=== PATIENT | female | born 1945 | race Caucasian/White ===

== ENCOUNTER 2020-01-16 07:52 | Outpatient (CLI) | payer MEDICARE, OTHER, SELFPAY ==
[2020-01-16 08:46] LABS: Estimated Glomerular Filt Rate > 60
== END 2020-01-16 07:53 | disposition home or self-care (01) ==
PROVIDERS: PCP Family Medicine; Visit Provider Nurse Practitioner Adult Health
DX: N13.30 Unspecified hydronephrosis (principal)
CPT/HCPCS: 36415; 82565

== ENCOUNTER 2020-01-20 08:36 | Outpatient (CLI) | payer MEDICARE, OTHER, SELFPAY ==
--- NOTE | ~2020-01-20 | NM_ITS ---
EXAMINATION: MALACHI carlton renal scan DATE: 01/20/2020 11:10 INDICATION: Hydronephrosis. TECHNIQUE: 8 mCi Tc-99m MAG3 was administered IV. 40 mg furosemide was administered IV immediately a fterward. The patient was scanned in the supine position. A posterior abdominal radionuclide angiogra m was obtained. A subsequent time course of static images of the kidneys, ureters, and bladder was ob tained. COMPARISON: CT abdomen and pelvis 05/04/2017 FINDINGS: The posterior abdominal radionuclide angiogram and sequential static images show normal siz e, position, and morphology of the kidneys. Peak renal parenchymal uptake was 2 min in right kidney a nd 2 min in left kidney (normal peak 3-5 minutes). The relative early renal uptake was 51% on the ri ght and 49% on the left (<40% is abnormal). No abnormalities of the ureters or bladder are seen. T1/2 for clearance of activity from the right kidney and proximal collecting system was 17 minutes. T1/2 for clearance of activity from the left kidney and proximal collecting system was 12 minutes. IMPRESSION: 1. Symmetric kidney function. 2. Delayed contrast clearance from right kidney and proximal collecting system, consistent with part ial obstruction that is likely clinically significant. 3. Delayed contrast clearance from left kidney and proximal collecting system, consistent with low g rade obstruction of questionable clinical significance. 4. Correlate with outside imaging for the side(s) of hydronephrosis. Note that false positives may b e seen with supine positioning, dehydration, and poor renal function. Reviewed, dictated and finalized at location A. IMPRESSION: 1. Symmetric kidney function. 2. Delayed contrast clearance from right kidney and proximal collecting system , consistent with partial obstruction that is likely clinically significant. 3. Delayed contrast clearance from left kidney and proximal collecting system, consistent with low grade obstruction of questionable clinical significance. 4. Correlate with outside imaging for the side(s) of hydronephrosis. Note that false positives may be seen with supine positioning, dehydration, and poor isidro al function.
== END 2020-01-20 08:37 | disposition home or self-care (01) ==
LOC: ANHIMG 08:38
PROVIDERS: PCP Family Medicine; Visit Provider Nurse Practitioner Adult Health
DX: N13.30 Unspecified hydronephrosis (principal)
CPT/HCPCS: 78708; A9562; J1940

== ENCOUNTER 2020-02-16 07:57 | Outpatient (CLI) | payer MEDICARE, OTHER, SELFPAY ==
--- NOTE | 2020-02-16 08:00 | ECG_ITS ---
Measurements Intervals Cross Rate: 64 P: 57 CA: 179 QRS: -23 QRSD: 90 T: 30 QT: 376 QTc: 390 Interpretive Statements SINUS RHYTHM DELAYED PRECORDIAL R/S TRANSITION VOLTAGE CRITERIA FOR LVH BASELINE ARTIFACT- I, II, AVR, AVL, AVF BORDERLINE ECG Electronically Signed On 02-16-2020 8:28:33 CDT by Michel Wilkes D.O.
[2020-02-16 08:35] LABS: Anion Gap 14 mmol/L (8-16); Blood Urea Nitrogen 22 mg/dL (7-17); Calcium 9.5 mg/dL (8.4-10.2); Carbon Dioxide 25 mmol/L (22-30); Chloride 100 mmol/L (98-107); Estimated Glomerular Filt Rate 44; Glucose 85 mg/dL (65-105); Potassium 3.5 mmol/L (3.4-5.0); Sodium 139 mmol/L (137-145)
== END 2020-02-16 07:58 | disposition home or self-care (01) ==
LOC: ANHSURGERY 08:00
PROVIDERS: Anesthesiology; PCP Family Medicine; Visit Provider Urology
DX: N13.30 Unspecified hydronephrosis (principal); I10 Essential (primary) hypertension; Z79.899 Other long term (current) drug therapy
CPT/HCPCS: 36415; 80048; 87077; 87086; 87088; 93005

== ENCOUNTER 2020-02-24 00:34 | Outpatient (CLI) | payer MEDICARE, OTHER, SELFPAY ==
[2020-02-24 19:29] LABS: SARS-CoV-2 RNA PCR Negative
== END 2020-02-24 00:35 | disposition home or self-care (01) ==
LOC: ANHCOVIDDT 00:34
PROVIDERS: PCP Family Medicine; Visit Provider Urology
DX: Z20.828 Contact with and (suspected) exposure to other viral communicable diseases (principal); Z01.812 Encounter for preprocedural laboratory examination
CPT/HCPCS: 87635; C9803; U0003

== ENCOUNTER 2020-02-27 01:01 | Day surgery (SDC) | payer MEDICARE, OTHER, SELFPAY ==
[2020-02-15 08:40] VITALS: BMI 41.3
--- NOTE | 2020-02-26 07:48 | P.HP_ITS ---
H&P: HPI History of Present Illness Date/Time: 02/26/20 07:48 Chief complaint: hydronephrosis Narrative: Jocy Foy is a 74 year old female with mild bilateral hydronephrosis. 50/50 function. t1/2 12 and 17 [facility] Family History Family History (Updated 02/10/13 @ 10:39 by DOCTOR UNKNOWN) Other Diabetes mellitus Family history of arthritis Family history of cardiovascular disease Hypertension Social History Social History Smoking status: Never smoker Alcohol intake: never Substance use: never Spiritual care concerns: No Meds Home Medications and Allergies Home Medications Medication Instructions Recorded Confirmed Type atorvastatin 10 mg PO HS 02/15/20 02/15/20 History meloxicam 15 mg PO DAILY PRN 02/15/20 02/15/20 History olmesartan-hydrochlorothiazide 1 tablet PO DAILY 02/15/20 02/15/20 History omeprazole 20 mg PO DAILY 02/15/20 02/15/20 History oxybutynin chloride 10 mg PO DAILY 02/15/20 02/15/20 History zolpidem 5 mg PO HS PRN 02/15/20 02/15/20 History Allergies Allergy/AdvReac Type Severity Reaction Status Date / Time No Known Allergies Allergy Unknown Unverified 02/15/20 08:35 Exam Const: General: no acute distress HENMT: Mouth: Yes moist mucous membranes Eyes: General: appearance normal, both eyes and all related structures Neck: Neck: supple Resp: Effort & Inspection: normal respiratory effort GI: GI Palp: Yes Soft to palpation Skin: General skin exam: normal color Neuro: Motor exam (neuro): Normal motor muscle tone present throughout Extrem: General: normal to inspection Psych: Affect: normal affect Assessment and Plan Assessment and plan (1) Bilateral hydronephrosis: Code(s): N13.30 - Unspecified hydronephrosis Status: Acute Assessment and Plan: cysto/bilateral retrograde pyelograms
[2020-02-27] VITALS (7 sets, daily range): BP systolic 102–132; BP diastolic 45–90; PULSE 54–99; RESP 12–16; TEMP 36.3–36.8; O2SAT 96–99
--- NOTE | ~2020-02-27 | XR_ITS ---
EXAMINATION: XR retrograde pyelogram BI DATE: 02/27/2020 11:18 INDICATION: Hydronephrosis TECHNIQUE: 103 fluoroscopic images of the abdomen and pelvis were obtained during procedure performed by Dr. Tellez. Radiologist was not present for the imaging or procedure. The amount of fluoroscopy time used during this procedure was 0.4 minutes. COMPARISON: CT dated 05/04/2017 FINDINGS: Customer Service Specialist images demonstrate surgical clips bilaterally in the paraspinal right lower quadrant and the left and right pelvis suggesting prior lymph node dissections. No evident urolithiasis. Image s demonstrate retrograde contrast injections into both the left and right ureters and renal collectin g systems. No urothelial irregularities or filling defects. Mild right hydronephrosis without hydrour eter and mild caliectasis at the upper pole of the left kidney. IMPRESSION: 1. Mild right hydronephrosis and mild caliectasis at the upper pole of the left kidney. No obstructin g lesions, urothelial irregularities or stones. Reviewed, dictated and finalized at location B. IMPRESSION: 1. Mild right hydronephrosis and mild caliectasis at the upper pole of the left kidney. No obstructing lesions, urothelial irregularities or stones.
--- NOTE | 2020-02-27 07:26 | WPDHPUPDATE1 ---
History and Physical Update Update Date/Time: 02/27/20 07:26 History and Physical has been reviewed, including an updated exam of the patient. There are NO changes in the patient's condition. Risks, benefits, and alternatives have been discussed and questions answered. Patient agrees to proceed with procedure.
--- NOTE | 2020-02-27 09:06 | WPDANESEPP ---
Anes - Eval Pre Procedure Procedure: Operation Date: 02/27/20 11:15 Proposed Procedures p Cystoscopy, Bilateral Retrograde Pyelogram - Mango Telelz MD Date/Time: 02/27/20 09:06 Pre Op Diagnosis: hydronephrosis Patient Data Age: 74 Gender: F Height: 5 ft 3 in Weight: 105.9 kg Allergies Allergy/AdvReac Type Severity Reaction Status Date / Time No Known Allergies Allergy Unknown Unverified 02/15/20 08:35 Home Medications Medication Instructions Recorded Confirmed Type atorvastatin 10 mg PO HS 02/15/20 02/15/20 History meloxicam 15 mg PO DAILY PRN 02/15/20 02/15/20 History olmesartan-hydrochlorothiazide 1 tablet PO DAILY 02/15/20 02/15/20 History omeprazole 20 mg PO DAILY 02/15/20 02/15/20 History oxybutynin chloride 10 mg PO DAILY 02/15/20 02/15/20 History zolpidem 5 mg PO HS PRN 02/15/20 02/15/20 History Patient hx anesthesia problems: none Family hx anesthesia problems: none PMFSH Past Medical History Medical History (Updated 02/27/20 @ 09:10 by Skinny Mcintyre CRNA) GERD (gastroesophageal reflux disease) HTN (hypertension), benign Hyperlipidemia Ovarian cancer Surgical History Surgical History (Updated 02/27/20 @ 09:10 by Skinny Mcintyre CRNA) H/O oophorectomy History of cholecystectomy S/P appy Family History Family History (Updated 02/10/13 @ 10:39 by DOCTOR UNKNOWN) Other Diabetes mellitus Family history of arthritis Family history of cardiovascular disease Hypertension Social History Social History Smoking status: Never smoker Alcohol intake: never Substance use: never Living arrangements: with family Spiritual care concerns: No Exam Day of Procedure 02/27/20 09:06 Patient weight: obese Neurological: alert and oriented
[2020-02-27] MEDS: LACTATED RINGERS 1,000 ML 30 ML IV CONT (09:40)
--- NOTE | 2020-02-27 10:08 | WPDANESEPPF ---
Anes - Initial Pre Proc Eval Procedure: Operation Date: 02/27/20 11:15 Proposed Procedures p Cystoscopy, Bilateral Retrograde Pyelogram - Mango Tellez MD Date/Time: 02/27/20 10:08 Surgeon: Mango Tellez MD Pre Op Diagnosis: hydronephrosis Patient Data Age: 74 Gender: F Height: 5 ft 3 in Weight: 105.1 kg Allergies Allergy/AdvReac Type Severity Reaction Status Date / Time No Known Allergies Allergy Unknown Verified 02/27/20 09:17 Home Medications Medication Instructions Recorded Confirmed Type atorvastatin 10 mg PO HS 02/15/20 02/27/20 History meloxicam 15 mg PO DAILY PRN 02/15/20 02/27/20 History olmesartan-hydrochlorothiazide 1 tablet PO DAILY 02/15/20 02/27/20 History omeprazole 20 mg PO DAILY 02/15/20 02/27/20 History oxybutynin chloride 10 mg PO DAILY 02/15/20 02/27/20 History zolpidem 5 mg PO HS PRN 02/15/20 02/27/20 History Patient hx anesthesia problems: none Family hx anesthesia problems: none [facility] Past Medical History Medical History (Updated 02/27/20 @ 09:10 by Skinny Mcintyre CRNA) GERD (gastroesophageal reflux disease) HTN (hypertension), benign Hyperlipidemia Ovarian cancer Surgical History Surgical History (Updated 02/27/20 @ 09:10 by Skinny Mcintyre CRNA) H/O oophorectomy History of cholecystectomy S/P appy Family History Family History (Updated 02/10/13 @ 10:39 by DOCTOR UNKNOWN) Other Diabetes mellitus Family history of arthritis Family history of cardiovascular disease Hypertension Social History Social History Smoking status: Never smoker Alcohol intake: never Substance use: never Living arrangements: with family Spiritual care concerns: No Anes - Eval Final PreProcedure Day of Procedure 02/27/20 10:08 Patient weight: morbidly obese Heart: regular rate and rhythm Lungs: clear to auscultation Airway: Mallampati scale class III Last oral intake: >/= 8 hours Emergent: no Anesthetic plan: proceed Anesthesia type and monitoring: general LMA and standard monitoring Informed Consent: The patient's anesthetic plan and its attendant risks and benefits were discussed with the patient/family/POA. Questions were solicited and answers provided to the satisfaction of the patient/family/POA.
[2020-02-27] MEDS: ceFAZolin 2 GM/D5W 50 ML 2 GM/50 ML BAG IVPB (10:56)
[2020-02-27] MEDS: LIDOCAINE HCL 2% GEL UROJET 10 ML PKG MUCOUS MEM (11:07)
[2020-02-27] MEDS: KETOROLAC 30 MG/ML VIAL (*BKC) IV PUSH (11:08)
--- NOTE | 2020-02-27 11:18 | P.OP_ITS ---
Procedure Note - Detailed Date of procedure: 02/27/20 Pre-op diagnosis: hydronephrosis Post-op diagnosis: same Procedure performed: Cystoscopy with bilateral retrograde pyelogram Description of procedure: she was correctly identified and informed consent obtained. She is brought the operating room. She was given mac anesthesia. She was placed in dorsal lithotomy position. She was prepped and draped in sterile fashion. Time-out performed. Cystoscopy revealed a normal-appearing bladder. There was no tumors, stones, trabeculations. I did a retrograde pyelogram on the patient's left. She had a delicate ureter and collecting syste m without hydronephrosis. It seemed to drain promptly. I then repeated this on the right side. She again had a delicate ureter and collecting system which drained promptly. There is no filling defects on either side. There is no significant hydronephrosis. Her bladder was drained. She was awakened and transferred to PACU in stable condition. Anesthesia: MAC Surgeon: Mango Tellez MD Estimated blood loss (mL): 0 Drains: No Packing: No Pathology: none sent Complications: No immediate complications Condition: stable Disposition: PACU
== END 2020-02-27 12:48 | disposition home or self-care (01) ==
PROVIDERS: PCP Family Medicine; Visit Provider Urology
PROC: (CPT 52352; principal; 2020-02-27 11:15)
DX: N13.30 Unspecified hydronephrosis (principal); I10 Essential (primary) hypertension
CPT/HCPCS: 52005; 74420; A9270; C1758; C1769; J0690; J1100; J1885; J2405; J2704; J3010; J7120; Q9966

== ENCOUNTER 2020-08-15 13:12 | Outpatient (CLI) | payer MEDICARE, OTHER, SELFPAY ==
--- NOTE | ~2020-08-15 | MM_ITS ---
EXAMINATION: MM screening nat BI w rakesh HISTORY: Screening TECHNIQUE: Craniocaudal and mediolateral oblique 3-D tomosynthesis images were obtained and synthetic 2-D images were generated. CAD analysis was submitted and interpreted. COMPARISON: Comparison to multiple prior studies sequentially, with oldest reviewed study dated 05/30. BREAST PARENCHYMAL COMPOSITION: There are scattered areas of fibroglandular density. FINDINGS: There is a developing mass in the subareolar location of the right breast measuring 5 mm. T he left breast is stable without evidence for malignancy. IMPRESSION: 1. Developing 5 mm right breast mass in the subareolar location. 2. Additional mammographic views and possible breast ultrasound are recommended. BI-RADS Category 0: Incomplete: Needs additional imaging evaluation. Reviewed, dictated and finalized at location D. DREN'S CHOIR DIRECTOR IMPRESSION: 1. Developing 5 mm right breast mass in the subareolar location. 2. Additional mammographic views and possible breast ultrasound are recommended . BI-RADS Category 0: Incomplete: Needs additional imaging evaluation.
== END 2020-08-15 13:13 | disposition home or self-care (01) ==
LOC: ANHIMG 13:17
PROVIDERS: PCP Family Medicine
DX: Z12.31 Encounter for screening mammogram for malignant neoplasm of breast (principal); R92.8 Other abnormal and inconclusive findings on diagnostic imaging of breast
CPT/HCPCS: 77063; 77067

== ENCOUNTER 2020-09-13 11:30 | Outpatient (CLI) | payer MEDICARE, OTHER, SELFPAY ==
--- NOTE | ~2020-09-13 | MMUS_ITS ---
EXAMINATION: MM diagnostic mammo unilat RT, US breast RT limited HISTORY: Follow-up right breast mass TECHNIQUE: Additional 3-D tomosynthesis images of the right breast were performed and synthetic 2-D i mages were generated. CAD analysis was submitted and interpreted. High resolution right breast ultras ound was performed. COMPARISON: 08/15/2020 BREAST PARENCHYMAL COMPOSITION: Breast composed of scattered areas of fibroglandular density. FINDINGS: MAMMOGRAPHIC FINDINGS: Breast composed of scattered areas of fibroglandular density. There is a 5 subareolar mass in the rig ht breast centrally. No suspicious architectural distortion or cluster of calcifications. ULTRASOUND: In the right breast in the subareolar location there is a 6 mm cyst corresponding to the mass identif ied on mammography. No suspicious masses to suggest malignancy. IMPRESSION: 1. No evidence for malignancy in the right breast. 2. Routine yearly screening mammogram and regular clinical breast examination are recommended. BI-RADS Category 2: Benign finding(s). Reviewed, dictated and finalized at location A. IMPRESSION: 1. No evidence for malignancy in the right breast. 2. Routine yearly screening mammogram and regular clinical breast examination a re recommended. BI-RADS Category 2: Benign finding(s).
== END 2020-09-13 11:31 | disposition home or self-care (01) ==
LOC: ANHIMG 11:33
PROVIDERS: PCP Family Medicine
DX: R92.8 Other abnormal and inconclusive findings on diagnostic imaging of breast (principal)
CPT/HCPCS: 76642; 77065

== ENCOUNTER 2021-02-04 07:41 | Outpatient (CLI) | payer MEDICARE, OTHER, SELFPAY ==
--- NOTE | ~2021-02-04 | DEXA_ITS ---
Bone Density Report Name: Jocy Foy Age: 75 Sex: Female Ethnicity: White Date of : 1945 Indication: postmenopausal; height loss; prior fracture; cancer; hysterectomy; Referring Provider: Michaela, Breanna Study: Bone densitometry was performed. Exam Date: February 04, 2021 Accession number: [id number] Bone Density: Region BMD T-score Z-score Classification AP Spine (L1, L4) 1.271 2.1 4.4 Normal Femoral Neck (Left) 0.873 0.2 2.2 Normal Total Hip (Left) 1.124 1.5 3.2 Normal Total Hip Bilateral Avg 1.122 1.5 3.2 Normal Femoral Neck (Right) 0.856 0.1 2.1 Normal Total Hip (Right) 1.119 1.4 3.2 Normal World Health Organization criteria for BMD impression classify patients as: Normal (T-score at or above -1.0), Osteopenia (T-score between -1.0 and -2.5), or Osteoporosis (T-score at or below -2.5). 10-year Fracture Risk: FRAX not reported because: All T-scores for Spine Total, Hip Total, Femoral Neck at or above -1.0 Previous Exams: Region Exam Age BMD T-score BMD Change BMD Change Date g/cm2 vs Baseline vs Previous AP Spine(L1, L4) 02/04/2021 75 1.271 2.1 -0.066(-5.0%)# -0.005(-0.4%) 06/10/2016 71 1.276 2.2 -0.062(-4.6%)# 0.084(7.1%)# 08/03/2012 67 1.192 1.4 -0.146(-10.9%) 0.000(0.0%)# 07/30/2009 64 1.191 1.4 -0.146(-10.9%) -0.024(-2.0%)* 07/02/2006 61 1.216 1.6 -0.122(-9.1%)* -0.122(-9.1%)* 07/16/2001 56 1.337 2.7 Total Hip(Left) 02/04/2021 75 1.124 1.5 -0.090(-7.4%)# 0.060(5.7%)* 06/10/2016 71 1.063 1.0 -0.150(-12.4%) 0.021(2.0%)# 08/03/2012 67 1.043 0.8 -0.171(-14.1%) -0.039(-3.6%)# 07/30/2009 64 1.081 1.1 -0.132(-10.9%) -0.016(-1.5%) 07/02/2006 61 1.097 1.3 -0.116(-9.5%)* -0.116(-9.5%)* 07/16/2001 56 1.213 2.2 Total Hip(Right) 02/04/2021 75 1.119 1.4 -0.098(-8.0%)# 0.000(0.0%) 06/10/2016 71 1.119 1.4 -0.098(-8.0%)# 0.023(2.1%)# 08/03/2012 67 1.096 1.3 -0.121(-9.9%)# 0.054(5.2%)# 07/30/2009 64 1.042 0.8 -0.175(-14.4%) -0.073(-6.5%)* 07/02/2006 61 1.115 1.4 -0.102(-8.4%)* -0.102(-8.4%)* 07/16/2001 56 1.216 2.2 *Denotes significance at 95% confidence level, LSC for AP Spine = 0.022 g/cm2, LSC for Total Hip = 0.027 g/cm2 Clinical Information Provided by Patient: Has had a low trauma fracture Has used the following medications: Vitamin D Has the following medical conditions: Cancer, Hysterectomy Patient maximum height was 65 Menopause Age: 54 D
== END 2021-02-04 07:42 | disposition home or self-care (01) ==
LOC: ANHIMG 07:43
PROVIDERS: PCP Family Medicine; Visit Provider Family Medicine
DX: Z78.0 Asymptomatic menopausal state (principal); G62.89 Other specified polyneuropathies
CPT/HCPCS: 77080

== ENCOUNTER 2021-02-08 11:00 | Outpatient (RCR) | payer MEDICARE, OTHER, SELFPAY ==
--- NOTE | 2021-01-04 15:34 | PTOPEVAL ---
PHYSICAL THERAPY EVALUATION Thank you for referring Jocy Foy to [facility].? Jocy was evaluated today for the dx of polyneuropathy/left arm radicular symptoms. The patient is scheduled to be seen for therapy?2 x/week for 4 weeks. Please review, sign, date and return this plan of care ELI. I agree with and certify that the following plan of care is medically necessary. Referring Physician Date Attending Provider: Breanna Lopez *PT Outpatient Evaluation Start: 01/04/21 14:11 Freq: Status: Active Protocol: Document 01/04/21 14:17 MLV (Rec: 01/04/21 15:14 MLV [id number]) Therapy Assessment Status Assessment Status Assessment Status Evaluation Evaluation Information Problem Diagnosis polyneuropathy Cause no injury Additional Evaluation Detail The patient has had shooting pain/tingling at both feet for about 3 years. The patient began having tingling at both hands and left shoulder/arm for about 6 months. Her symptoms affect gripping things, lifting and reaching ability and sleeping. The patient had a primary MD visit, mentioned her symptoms and was given Lyrica and ordered PT. The patient noted no improvements so does not take the Lyrica anymore. The patient has hx of C4 and C5 herniated discs (10+yrs ago)- no surgery. The patient has a chronic neck ache but low; rated 1 out of 10. Subjective Information The patient's goal is to be Query Text:As Reported By Patient/ rid of the left arm and hand Family tingling with daily activity and sleeping. 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
--- NOTE | 2021-01-30 10:02 | PCPTNOTE ---
Patient did not show up for scheduled appointment this date. PT called pt. and pt had gotten her appt day mixed up. Pt plans to be robby at her appt on Thursday.
--- NOTE | 2021-02-08 11:57 | PTOPEVAL ---
PHYSICAL THERAPY DISCHARGE Thank you for referring Jocy Foy to [facility].? The patient has completed 9 visits for the dx of polyneuropathy. Jocy has met her goals and PT is discontinued at this time . Please review, sign, date and returnthis plan of care ELI. I agree with and certify that the following plan of care. Referring Physician Date Attending Provider: Breanna Lopez *PT Outpatient Discharge Start: 01/04/21 14:11 Freq: Status: Active Protocol: Document 02/08/21 11:04 [facility] (Rec: 02/08/21 11:21 [facility] [id number]) Therapy Assessment Status Assessment Status Assessment Status Discharge Evaluation Information Problem Diagnosis polyneuropathy Cause no injury Additional Evaluation Detail The patient feels she is 80% better and not having the tingling/numbness at night or as frequently. The patient also feels her neck is much more mobile for regular activities. The therapy supports the patient's improvements. The patient currently feels she doesn't need to see MD for follow up and will continue her therapy on her own as instructed. Pain Assessment Timing of Pain Assessment Timing of Pain Assessment Assessment Pain Scale Pain Scale Used Numeric (1 - 10) Self Report Pain Assessment Bilateral Hand(s) Reported Pain Level 0 Left Arm(s) Reported Pain Level 0 Pain Description Tingling Other Pain Description 1-2 on rare occasion for tingling Pain Score Pain Score 0,0: Self Report Interventions Used Interventions Used By Clinicians Electrical Stimulation,Heat, Manual Therapy Techniques Pain Relief Interventions Used By Exercise,Position Change Patient Cervical and Lumbar ROM Cervical ROM Cervical Flexion (0-60) 66 Query Text:Active in Degrees Cervical Extension (0-70) 42 Query Text:Active in Degrees Cervical Lateral Flexion Right (0-50) 34 Query Text:Active in Degrees Cervical Lateral Flexion Left (0-50) 30 Query Text:Active in Degrees Cervical Rotation Right (0-90) 65 Query Text:Active in Degrees Cervical Rotation Left (0-90) 53 Query Text:Active in Degrees Posture Posture Sitting Position Posture Evaluation View all Head/C-Spine Posture C-Spine Flattened,Forward Head Thora
== END 2021-02-12 14:21 | disposition home or self-care (01) ==
LOC: ANHPT 11:00
PROVIDERS: PCP Family Medicine
DX: G62.89 Other specified polyneuropathies (principal)
CPT/HCPCS: 97014; 97110; 97140; 97162; G0283

== ENCOUNTER 2021-04-08 07:26 | Outpatient (CLI) | payer MEDICARE, OTHER, SELFPAY ==
--- NOTE | ~2021-04-08 | XR_ITS ---
XR abdomen/kub 1V DATE: 04/08/2021 07:45 INDICATION: Left flank pain TECHNIQUE: AP projection, 2 views COMPARISON: 04/08/2021 CT abdomen pelvis FINDINGS: Surgical clips, right upper quadrant, consistent with cholecystectomy. Surgical clips overlie the right lower abdomen and bilateral pelvic areas consistent with prior retro peritoneal and pelvic lymph node dissection. The psoas shadows are intact. No visceromegaly is evident. There is no evidence of bowel obstruction. No urinary tract calcification is noted. IMPRESSION: Postoperative changes from cholecystectomy and retroperitoneal pelvic lymph node dissecti on No urinary tract calcification is noted Reviewed, dictated and finalized at Location A. Reviewed, dictated and finalized at location B. IMPRESSION: Postoperative changes from cholecystectomy and retroperitoneal pelv ic lymph node dissection No urinary tract calcification is noted
--- NOTE | ~2021-04-08 | CT_ITS ---
EXAMINATION: CT abdomen pelvis wo con DATE: 04/08/2021 07:50 INDICATION: Left flank pain TECHNIQUE: Computed tomography (CT) of the abdomen and pelvis was performed without intravenous contr ast. Automated exposure control and iterative reconstruction technique were employed. Exam dose: 120 1.41 mGy-cm total exam DLP. COMPARISON: 04/08/2021 KUB 05/04/2017 CT abdomen pelvis FINDINGS: There is minimal discoid atelectasis or scarring at the lung bases. Normal heart size. No pericardial or pleural effusion. Small sliding hiatal hernia. Status post cholecystectomy. The liver, spleen, pancreas and the pancreatic duct and bile ducts are u nremarkable. Normal morphology of the adrenal glands. Left parapelvic renal cysts are again noted. No urinary tract calculus or hydroureteronephrosis. The urinary bladder is unremarkable. Status post hysterectomy. Normal caliber of the abdominal aorta. No intraperitoneal or retroperitoneal or pelvic mass lesion or adenopathy or ascites. There are surgical clips along the right common iliac and bilateral external iliac areas from prior r etroperitoneal and pelvic lymph node dissection. Probable appendectomy. No bowel obstruction, bowel wall thickening, pneumatosis or intraperitoneal fr ee air. Degenerative changes of the thoracic and lumbar spine. Osteopenia. No suspicious osteolytic or osteob lastic lesions are noted. IMPRESSION: Small sliding hiatal hernia Status post cholecystectomy Status post appendectomy Left parapelvic renal cysts No urinary tract calculus or hydroureteronephrosis Reviewed, dictated and finalized at Location A. Reviewed, dictated and finalized at location B.
== END 2021-04-08 07:27 | disposition home or self-care (01) ==
LOC: ANHIMG 07:31
PROVIDERS: PCP Family Medicine; Visit Provider Nurse Practitioner Adult Health
DX: R10.9 Unspecified abdominal pain (principal); K44.9 Diaphragmatic hernia without obstruction or gangrene; Z90.49 Acquired absence of other specified parts of digestive tract; N28.1 Cyst of kidney, acquired
CPT/HCPCS: 74018; 74176

== ENCOUNTER 2021-11-08 08:25 | Outpatient (CLI) | payer MEDICARE, OTHER, SELFPAY ==
--- NOTE | ~2021-11-08 | MM_ITS ---
EXAMINATION: MM screening [facility] [place] HISTORY: Screening TECHNIQUE: Craniocaudal and mediolateral oblique 3-D tomosynthesis images were obtained and synthetic 2-D images were generated. CAD analysis was submitted and interpreted. COMPARISON: Comparison to multiple prior studies sequentially, with oldest reviewed study dated 05/30. BREAST PARENCHYMAL COMPOSITION: There are scattered areas of fibroglandular density. FINDINGS: Stable mass in the subareolar location of the right breast, previously characterized as a c yst by ultrasound on 09/13/2020 There is no evidence of suspicious mass, calcification, or architectur al distortion to suggest malignancy in either breast. There has been no suspicious interval change. IMPRESSION: 1. No mammographic evidence of malignancy. 2. Recommend routine screening mammography in one year. BI-RADS Category 2: Benign finding(s). Reviewed, dictated and finalized at location A.
== END 2021-11-08 08:26 | disposition home or self-care (01) ==
PROVIDERS: PCP Family Medicine; Visit Provider Family Medicine
DX: Z12.31 Encounter for screening mammogram for malignant neoplasm of breast (principal)
CPT/HCPCS: 77063; 77067

== ENCOUNTER 2022-01-23 08:00 | Outpatient (RCR) | payer MEDICARE, OTHER, SELFPAY ==
--- NOTE | 2021-12-27 10:07 | PTOPEVAL ---
Thank you for referring Jocy Foy to [facility].? She is scheduled to be seen for therapy? 2x/week for 4 weeks. Please review, sign, date and return this plan of care ELI. I agree with and certify that the following plan of care is medically necessary. Referring Physician Date Attending Provider: Breanna Jennings MD Past Medical History Source of Past Medical History Recalled from Previous Visit, Confirmed with Patient/Family Neurological History Hx Neurological Disorders No Significant History Cardiovascular History Hx Hypercholesterolemia Yes: meds Hx Hypertension Yes: meds Hx Other Cardiac Disorders Yes: DENIES CARDIAC SYMPTOMS Respiratory History Hx Other Respiratory Disorders Yes: SOB with exertion Gastrointestinal History Hx Appendectomy Yes Hx Cholecystectomy Yes Hx Gastroesophageal Reflux Disease Yes Genitourinary History Hx Urinary Tract Infection Yes: FREQUENT UTI'S Musculoskeletal History Hx Arthritis Yes: BACK, FEET/ANKLES, hands; neck pain with radicular UE's Hx Fractures Yes: RT ANKLE Hx Orthopedic Surgery Yes: ORIF RT ANKLE, RT FOOT TENDON TRANSFER, LT BUNIONECTOMY X2 Hx Other Musculoskeletal Disorders Yes: LT FOOT TENDON TRANSFER WITH OSTEOTOMY; B TKR Hematological History Hx Blood Transfusions Yes: WITH BILATERAL OOPHORECTOMY 2010 Endocrine History Hx Endocrine Disorders No Significant History HEENT History Hx Cataracts Yes: BILATERAL SURGERY 2007 Hx Sinus Problems Yes: SEASONAL ALLERGIES Hx Other HEENT Disorders Yes: GLASSES Integumentary History Hx Skin Disorders No Significant History Reproductive History Hx Post Menopausal Yes Hx Other Reproductive Disorders Yes: OVARIAN CA, BILATERAL OOPHORECTOOMY 2010 Psychosocial History Hx Psychiatric Disorders No Significant History Pain History History of Any Previous or Ongoing No Significant History Instance of Pain Anesthesia History Hx Anesthesia Reactions No Significant History Other History Hx Cancer Yes: OVARIAN CA 2011 Hx Chemotherapy Yes: WITH OVARIAN CA Hx Other Medical Conditions Yes: obesity Evaluation Information Diagnosis thoracic pain, lumbar pain with sciatica Onset September 2021 Subjective Information chronic LBP 30 yrs; recent Query Text:As Reported By Patient/ started into R buttock; no Family injury or trauma to back recently; recent neck pain and
--- NOTE | 2022-01-23 08:49 | PTOPEVAL ---
PHYSICAL THERAPY DISCHARGE REPORT 01-23-22 Refer to the clinical summary below, for her status today, compared to the initial evaluation. The goals were partially achieved. Discharge PT services. Jocy is to continue her home exercises and posture awareness. Thank you for referring Jocy Foy to [facility] [place].? Please review, sign, date and return this Discharge report ELI. I agree with and certify that the following plan of care is medically necessary. Referring Physician Date Attending Provider: Breanna Jennings MD Subjective Information Jocy reports: back feels a Query Text:As Reported By Patient/ little better, still have pain Family in rear end; the core exercises have helped; at work, does not have a new desk yet at work, still at a table ; doing everything at home she needs to do-- does heavier lifting; agree to d/c PT. Pain Assessment Pain Scale Pain Scale Used Numeric (1 - 10) Self Report Pain Assessment Bilateral Back Reported Pain Level 0 Pain Description Burning Radicular Pain Location R post buttock grey, some shooting pain in back at times Pain Frequency Chronic,Intermittent Lowest Pain Intensity 0 Greatest Pain Intensity 4 Pain Aggravating Factors Exercise/Activity,Sitting Pain Behaviors Grimacing,Guarding Additional Pain Score Comments Oswestry self assessment functional score of 22% limitation in activity level report sitting tolerance varies, 1-2 hours; mostly chair at home bothers her-- recliner with legs elevated due to swelling; education on position of low back in the recliner and use of pillow support at lumbar area; sometimes at work, sit up to 3 hours at time--reinstruct position change every 30 min Interventions Used Interventions Used By Clinicians Education Pain Relief Interventions Used By Ice,Inactivity/Rest,Medication Patient ,Position Change Other Alleviating Interventions tylenol PRN; ice PRN- not used much lately Gross Lower Extremity Strength functional strength testing: - supine: SLR R 20 /L 20 reps -side lying: hip abduction to 10' R 20 /L 20 reps
== END 2022-01-23 12:59 | disposition home or self-care (01) ==
LOC: ANHPT 08:00
PROVIDERS: PCP Family Medicine; Referring Provider Family Medicine; Visit Provider Family Medicine
DX: M54.6 Pain in thoracic spine (principal); M54.41 Lumbago with sciatica, right side; G89.29 Other chronic pain
CPT/HCPCS: 97014; 97110; 97140; 97162; 97530; G0283

== ENCOUNTER 2023-01-05 07:31 | Outpatient (CLI) | payer MEDICARE, OTHER, SELFPAY ==
--- NOTE | ~2023-01-05 | CT_ITS ---
Non-contrast CT scan of the Abdomen and Pelvis Clinical indication: Abdominal pain Technique: 2.5 mm axial scans were obtained through the abdomen and pelvis without intravenous or or al contrast. Dose reduction technique was used on this scan by utilizing automated exposure control a nd iterative reconstruction technique. The dose-length product (DLP) was 1318.38 mGy-cm. COMPARISON: 04/08/2021 Findings: Images through the lung bases reveal no abnormalities. There are probable parapelvic left renal cysts. No renal or ureteral stones seen. No definite hydrone phrosis. The liver, spleen, pancreas, and adrenals appear normal. Cholecystectomy clips are present. There are atherosclerotic calcifications of the aorta. There is no evidence of bowel obstruction. Images through the pelvis were performed. There is no evidence of ascites or lymphadenopathy. Urinary bladder unremarkable. Patient is post hysterectomy. No adnexal mass seen. Impression: No significant abnormality seen. Reviewed, dictated and finalized at [facility]. Impression: No significant abnormality seen.
== END 2023-01-05 07:32 | disposition home or self-care (01) ==
PROVIDERS: PCP Family Medicine; Visit Provider Family Medicine
DX: R10.31 Right lower quadrant pain (principal)
CPT/HCPCS: 74176

== ENCOUNTER 2023-02-20 07:52 | Outpatient (CLI) | payer MEDICARE, OTHER, SELFPAY ==
--- NOTE | ~2023-02-20 | MM_ITS ---
EXAMINATION: MM screening [facility] [place] HISTORY: Screening mammogram TECHNIQUE: Craniocaudal and mediolateral oblique 3-D tomosynthesis images were obtained and synthetic 2-D images were generated. CAD analysis was submitted and interpreted. COMPARISON: 11/08/2021, 09/13/2020, 08/15/2020, 06/27/2019 BREAST PARENCHYMAL COMPOSITION: The breasts are almost entirely fatty. FINDINGS: A cyst is again noted in the anterior third of the right breast. No suspicious mass, calcif ication, or architectural distortion are identified in either breast to suggest malignancy. There has been no suspicious interval change. IMPRESSION: 1. No mammographic evidence of malignancy. 2. Recommend routine screening mammography in one year. BI-RADS Category 2: Benign finding(s). Reviewed, dictated and finalized at location A.
== END 2023-02-20 07:53 | disposition home or self-care (01) ==
LOC: ANHIMG 07:56
PROVIDERS: PCP Family Medicine; Visit Provider Family Medicine
DX: Z12.31 Encounter for screening mammogram for malignant neoplasm of breast (principal)
CPT/HCPCS: 77063; 77067

== ENCOUNTER 2023-12-18 09:21 | Outpatient (CLI) | payer MEDICARE, SELFPAY ==
--- NOTE | ~2023-12-18 | DEXA_ITS ---
Bone Density Report Name: VEENA CASTILLO Age: 78 Sex: Female Ethnicity: White Date of : 1945 Indication: postmenopausal; screening for osteoporosis; height loss; history of glucocorticoids; prior fracture; cancer; hysterectomy; Referring Provider: TAMARA, PATRICK Study: Bone densitometry was performed. Exam Date: December 18, 2023 Accession number: [id number] Bone Density: Region BMD T-score Z-score Classification AP Spine(L1, L4) 1.247 1.9 4.4 Normal Femoral Neck (Left) 0.831 -0.2 2.0 Normal Total Hip (Left) 1.212 2.2 4.1 Normal Femoral Neck (Right) 0.886 0.3 2.5 Normal Total Hip (Right) 1.222 2.3 4.2 Normal Total Hip Mean 1.217 2.3 4.2 Normal World Health Organization criteria for BMD impression classify patients as: Normal (T-score at or above -1.0), Osteopenia (T-score between -1.0 and -2.5), or Osteoporosis (T-score at or below -2.5). 10-year Fracture Risk: FRAX not reported because: All T-scores for Spine Total, Hip Total, Femoral Neck at or above -1.0 Previous Exams: Region Exam Age BMD T-score BMD Change BMD Change Date g/cm2 vs Baseline vs Previous AP Spine (L1,L4) 12/18/2023 78 1.247 1.9 -0.029 (-2.2%) -0.024 (-1.9%) 02/04/2021 75 1.271 2.1 -0.005 (-0.4%) -0.005 (-0.4%) 06/10/2016 71 1.276 2.2 Total Hip(Left) 12/18/2023 78 1.212 2.2 0.149 (14.0%)* 0.089 (7.9%)* 02/04/2021 75 1.124 1.5 0.060 (5.7%)* 0.060 (5.7%)* 06/10/2016 71 1.063 1.0 Total Hip(Right) 12/18/2023 78 1.222 2.3 0.103 (9.2%)* 0.103 (9.2%)* 02/04/2021 75 1.119 1.4 0.000 (0.0%) 0.000 (0.0%) 06/10/2016 71 1.119 1.4 *Denotes significance at 95% confidence level, LSC for AP Spine = 0.022 g/cm2, LSC for Total Hip = 0.027 g/cm2 Clinical Information Provided by Patient: Has had a low trauma fracture Has taken Glucocorticoids Has the following medical conditions: Cancer, Hysterectomy Patient maximum height was 65.0 Menopause Age: 54 No regular weight bearing exercise Drinks caffeinated beverages Onset of menses at age 14 Number of children 2 Impression: The patient has normal bone mass. The patient has risk factors, including: previous fracture, history of glucocorticoid therapy. The BMD for the AP Spine (L1,L4) decreased, changing by -1.9% since the last DXA exam. Discussion: BONE DENSITY IS ABOVE THE MINIMUM DESIRABLE LEVEL AT ALL SKELETAL SITES TESTED. This patient?s bone
== END 2023-12-18 09:22 | disposition home or self-care (01) ==
LOC: ANHIMG 09:22
PROVIDERS: PCP Family Medicine; Visit Provider Family Medicine
DX: Z78.0 Asymptomatic menopausal state (principal)
CPT/HCPCS: 77080

== ENCOUNTER 2024-08-25 09:00 | Outpatient (RCR) | payer MEDICARE, OTHER, SELFPAY ==
--- NOTE | 2024-08-01 12:09 | OPREHPOC ---
Outpatient Therapy Plan of Care This is a Multidisciplinary Plan of Care that may contain components documented by all disciplines (PT, OT, and ST.) PT Problem 1 PT Problem #1 Knowledge Deficit PT Goal 1 Goal / Goal Update [place] with HEP Target Visit 4 PT Goal 2 Goal / Goal Update Patient will report no pain greater than 2/10 consistently for 2 weeks Target Visit 8 PT Problem 2 PT Problem #2 Impaired Range of Motion PT Goal 1 Goal / Goal Update 1. Improve pete hamstring 90/90 length to -20 degrees or better 2. Improve pete hip abduction to 35 degrees to improve mobility to reduce lumbar rotation Target Visit 8 PT Problem 3 PT Problem #3 Impaired Strength PT Goal 1 Goal / Goal Update Improve pete hip abduction strength to 4+/5 to improv lateral stability with gait and ADLs Target Visit 8 PT Problem 4 PT Problem #4 Pain PT Goal 1 Goal / Goal Update Report 75% reduction in radicular symptoms Target Visit 8
--- NOTE | 2024-08-01 12:09 | PTOPEVAL1 ---
Assessment and note entered by Nabor Encarnacion, PT Evaluation Information Assessment Status Evaluation Diagnosis M54.41 LBP with radiculopathy Onset June 2024 Subjective Information Reports that she has had back pain for a long time . She has right sided pain with radiation. She is now noticing shooting pain down to her knee on the right side. She has numbness with some occasional sharp shooting pains. Leg feels itchy consistently as well. Back pain is occasional compared to leg pain. She has increased pain with sleeping and is losing sleep. She is a right side sleeper but it has been causing her pain. She can sleep better on her back. Reported Pain Level Pain Score 1: Self Report Assessment PT Clinical Summary Patient presents with signs and symptoms consistent with lumbar stenosis and resultant radiculopathy of sciatic nerve. Patient will benefit form skilled therapy to address these deficits to improve hip mobility, core strength, and ADL performance. Plan of Care Interventions Gait Training,Manual Therapy,Neuro Re-education, Therapeutic Activities,Therapeutic Exercise PT Services Indicated Yes Treatment Frequency and 2x/week for 8 visits Duration These treatments will address the objective and functional deficits as defined above. The patient will be advanced safely and appropriately in order for the patient to progress towards his/her prior level of function. Additional exercises will be introduced and as well as a comprehensive home exercise program upon discharge, if needed, ?to ensure carryover of functional gains achieved in the clinic. This treatment plan has been reviewed and agreement upon by the patient.
--- NOTE | 2024-08-25 11:54 | PTOPDC ---
Assessment and note entered by Nabor Encarnacion, PT Evaluation Information Assessment Status Discharge Diagnosis M54.41 LBP with radiculopathy Onset June 2024 Subjective Information Patient reports that she feels like she has made progress but has not seen significant progress in pain reduction. She does feel like that with continued performance of HEP she will see improvement but she is concerned that abdominal mass may be contributing. Reported Pain Level Pain Score 2: Self Report Assessment PT Clinical Summary Patient has seen progress in objective measures including ROM and strength. Overall she demonstrates understanding of need for objective continuation and reflects compliance with HEP. Suitable for D/C to HEP. Plan of Care PT Services Indicated Yes
== END 2024-08-25 13:44 | disposition home or self-care (01) ==
LOC: ANHPT 09:00
PROVIDERS: PCP Family Medicine; Visit Provider Family Medicine
DX: M54.41 Lumbago with sciatica, right side (principal)
CPT/HCPCS: 97110; 97140; 97161